=== PATIENT | female | born 1970 | race Caucasian/White ===

== ENCOUNTER 2017-09-11 01:59 | Inpatient (IN) ==
[2017-09-11] MEDS ORDERED: ONDANSETRON 4 MG/2 ML VIAL IV STA (03:03)
[2017-09-11] MEDS ORDERED: SODIUM CHLORIDE 0.9% 2,000 ML IV STA (03:04)
[2017-09-11] MEDS ORDERED: ONDANSETRON 4 MG/2 ML VIAL ONE (03:14)
[2017-09-11 03:51] LABS: Basophils # 0.1 10*3/uL (0.0-0.2); Basophils % 1.1 % (0.0-0.8); Eosinophils % 0.5 % (0.00-10.9); Hematocrit 43.6 VOL% (35.7-47.0); Hemoglobin 14.5 GM/DL (12.0-16.0); Immature Granulocytes % 0.4 %; Immature Granulocytes Absolute 0.03 #; Lymphocytes # 1.6 10*3/uL (1.4-4.0); Lymphocytes % 19.2 % (21.3-54.2); Mean Corpuscular HGB Conc 33.3 GM/DL (32-36); Mean Corpuscular Hemoglobin 28 PG (27-34); Mean Corpuscular Volume 85.5 FL (87-102); Mean Platelet Volume 10.3 FL (9.6-12.0); Monocytes # 0.6 10*3/uL (0.11-0.8); Monocytes % 6.8 % (1.7-12.7); Neutrophils # 6.2 10*3/uL (1.4-7.4); Platelet Count 532 T/CUMM (130-400); Red Cell Distribution Width 13.2 % (9.3-17.3); White Blood Count 8.5 T/CUMM (4-12)
[2017-09-11 04:10] LABS: Albumin 4.5 G/DL (3.4-5.0); Bilirubin,Total 0.4 MG/DL (0.2-1.0); Calcium 10.4 MG/DL (8.5-10.1); Osmolality,Calculated 281.5 MOS/KG (273-304); Potassium 3.7 MMOL/L (3.5-5.1); Total Protein 9.1 G/DL (6.4-8.3)
[2017-09-11] MEDS ORDERED: HYDROmorphone 2 MG/1 ML VIAL IV STA (05:14)
[2017-09-11] MEDS ORDERED: PANTOPRAZOLE 40 MG VIAL IV STA (05:14)
[2017-09-11] MEDS ORDERED: PANTOPRAZOLE 40 MG VIAL IV ONE (05:22)
[2017-09-11] MEDS ORDERED: HYDROmorphone 2 MG/1 ML VIAL ONE (05:23)
[2017-09-11] MEDS ORDERED: ONDANSETRON 4 MG/2 ML VIAL IV PRN (05:26)
[2017-09-11 06:21] LABS: Risk Ratio 3.89; VLDL CHOLESTEROL 18.8 MG/DL
[2017-09-11] MEDS: SODIUM CHLORIDE 0.9% 1,000 ML IV SCH ×2 (07:40→15:53)
[2017-09-11] MEDS: LEVOFLOXACIN INJ 500 MG in PREMIX 1 EACH IV SCH (09:04)
[2017-09-11] MEDS: PANTOPRAZOLE 40 MG TABLET PO SCH (09:36)
[2017-09-11] MEDS ORDERED: INFLUENZA VIRUS VACCINE 0.5 ML SYRINGE IM ONE (09:50)
[2017-09-11] MEDS ORDERED: PNEUMOCOCCAL VACCINE (23 VALENT) 0.5 ML VIAL IM ONE (09:53)
[2017-09-11 10:49] LABS: Hepatitis A Ab IgM Quant 0.12 Index; Hepatitis A Ab IgM Result Negative (Negative); Hepatitis B Core IgM Quant 0.13 Index; Hepatitis B Core IgM Result Negative (Negative); Hepatitis B Surface Ag Quant 0.11 Index; Hepatitis B Surface Ag Result Negative (Negative); Hepatitis C Virus Ab Quant > 11.00 Index; Hepatitis C Virus Ab Result Positive (Negative)
[2017-09-11] MEDS: HYDROmorphone 2 MG/1 ML VIAL IV PRN (18:48)
[2017-09-12] MEDS: SODIUM CHLORIDE 0.9% 1,000 ML IV SCH ×3 (03:03→16:25)
[2017-09-12 03:48] LABS: Basophils # 0.1 10*3/uL (0.0-0.2); Basophils % 1.1 % (0.0-0.8); Eosinophils # 0.3 10*3/uL (0.0-0.87); Eosinophils % 4.3 % (0.00-10.9); Hematocrit 33.8 VOL% (35.7-47.0); Hemoglobin 10.7 GM/DL (12.0-16.0); Immature Granulocytes % 0.4 %; Immature Granulocytes Absolute 0.03 #; Lymphocytes # 3.4 10*3/uL (1.4-4.0); Mean Corpuscular HGB Conc 31.7 GM/DL (32-36); Mean Corpuscular Hemoglobin 28 PG (27-34); Mean Corpuscular Volume 88.7 FL (87-102); Mean Platelet Volume 10.3 FL (9.6-12.0); Monocytes # 0.5 10*3/uL (0.11-0.8); Monocytes % 6.8 % (1.7-12.7); Neutrophils # 3.1 10*3/uL (1.4-7.4); Neutrophils % 41.4 % (38.7-73.9); Platelet Count 370 T/CUMM (130-400); Red Blood Count 3.81 MC/CUMM (3.8-5.5); Red Cell Distribution Width 13.4 % (9.3-17.3); White Blood Count 7.5 T/CUMM (4-12)
[2017-09-12 04:28] LABS: Bilirubin,Total 0.8 MG/DL (0.2-1.0); Calcium 8.8 MG/DL (8.5-10.1); Osmolality,Calculated 280.3 MOS/KG (273-304); Total Protein 6.1 G/DL (6.4-8.3)
[2017-09-12] MEDS: HYDROmorphone 2 MG/1 ML VIAL IV PRN ×2 (04:38→14:37)
[2017-09-12] MEDS: LEVOFLOXACIN INJ 500 MG in PREMIX 1 EACH IV SCH (06:34)
[2017-09-12] MEDS: PANTOPRAZOLE 40 MG TABLET PO SCH (09:00)
[2017-09-12] MEDS ORDERED: LIDOCAINE 2% 5 ML VIAL ONE (11:48)
[2017-09-12] MEDS ORDERED: PROPOFOL 200 MG/20 ML VIAL IV ONE (11:48)
[2017-09-13] MEDS: SODIUM CHLORIDE 0.9% 1,000 ML IV SCH ×2 (01:05→06:33)
[2017-09-13] MEDS: LEVOFLOXACIN INJ 500 MG in PREMIX 1 EACH IV SCH (06:25)
[2017-09-13] MEDS: HYDROmorphone 2 MG/1 ML VIAL IV PRN (06:31)
[2017-09-13] MEDS: PANTOPRAZOLE 40 MG TABLET PO SCH (09:55)
[2017-09-13 16:37] VITALS: BP 0/0
== END 2017-09-13 12:20 | disposition home or self-care (01) | DRG 439 ==
LOC: EDUNIT# → EDBD → N.ED 01:59 → N.EDINP 05:33 → N.3E 05:48
PROVIDERS: ADMIT Internal Medicine; ATTEND Internal Medicine